=== PATIENT | female | born 1960 | race African-American/Black ===

== ENCOUNTER 2023-02-24 09:19 | Emergency (ER) | payer MEDICARE, MEDICAID ==
[~2023-02-24] VITALS: Ht 162.6 cm; Wt 63.0 kg
[2023-02-24 09:22] VITALS: O2SAT 99
[2023-02-24 10:54] LABS: BASOPHILS % 1.2 % (0.0-2.0); EOSINOPHILS % 14.9 % (0.0-5.0); HEMATOCRIT. 40.5 % (36.0-48.0); HEMOGLOBIN. 13.1 g/dL (12.0-16.0); LYMPHOCYTES % 16.6 % (20.0-50.0); MEAN CORPUSCULAR HEMOGLOBIN 27.4 pg (28.0-32.0); MEAN CORPUSCULAR VOLUME 84.6 fL (81.0-99.0); MEAN PLATELET VOLUME 9.1 fl (7.4-10.4); MONOCYTES % 4.3 % (2.0-8.0); PLATELET 246 x1000/uL (130-400); RED BLOOD CELL COUNT 4.79 mill/uL (4.2-5.4); RED CELL DISTRIBUTION WIDTH 14.7 % (11.6-14.6)
[2023-02-24 11:03] LABS: CHLORIDE 111 mEq/L (98-107)
[2023-02-24] MEDS ORDERED: ACETAMINOPHEN 325MG TABLET PO ONE (12:00)
[2023-02-24 12:27] VITALS: TEMP 98.7
[2023-02-24] MEDS ORDERED: LOSARTAN POTASSIUM 25 MG TABLET PO ONE (13:00)
[2023-02-24] MEDS ORDERED: AMLODIPINE 10MG TABLET PO ONE (13:00)
[2023-02-24] MEDS ORDERED: HYDRALAZINE HCL 50MG TABLET PO SCH ×2 (14:45→15:00)
[2023-02-24] MEDS ORDERED: HYDRALAZINE HCL 25MG TABLET PO SCH (15:00)
[2023-02-24 15:23] VITALS: BP 192/96; PULSE 83; RESP 17
== END 2023-02-24 15:25 | disposition home or self-care (01) ==
LOC: ER 09:55
DX: R07.89 Other chest pain (principal); I25.10 Atherosclerotic heart disease of native coronary artery without angina pectoris; E11.9 Type 2 diabetes mellitus without complications; I10 Essential (primary) hypertension; Z86.73 Personal history of transient ischemic attack (TIA), and cerebral infarction without residual deficits
CPT/HCPCS: 36415; 71045; 80053; 83880; 84484; 85025; 93005; 99285

== ENCOUNTER 2023-08-31 12:20 | Emergency (ER) | payer MEDICAID, MEDICARE ==
[~2023-08-31] VITALS: Ht 165.1 cm; Wt 55.0 kg
[~2023-08-31 12:20] MED LIST: ATOR40TA70 PO; METO25TA6 PO; SENN-257 PO
[2023-08-31] MEDS ORDERED: MORPHINE SULFATE 4 MG/ML CPJ (NOT FOR IM USE) IV STA (12:26)
[2023-08-31] MEDS ORDERED: ONDANSETRON HCL 4MG/2ML INJ IV STA (12:26)
[2023-08-31 12:28] VITALS: TEMP 98.5; O2SAT 100
[2023-08-31 12:52] LABS: HEMATOCRIT. 36.3 % (36.0-48.0); HEMOGLOBIN. 11.4 g/dL (12.0-16.0); MEAN CORPUSCULAR HEMOGLOBIN 27.1 pg (28.0-32.0); MEAN CORPUSCULAR HGB CONC 31.4 g/dL (31.0-37.0); MEAN CORPUSCULAR VOLUME 86.3 fL (81.0-99.0); MEAN PLATELET VOLUME 9.9 fl (7.4-10.4); PLATELET 191 x1000/uL (130-400); RED BLOOD CELL COUNT 4.21 mill/uL (4.2-5.4); RED CELL DISTRIBUTION WIDTH 14.1 % (11.6-14.6); WHITE BLOOD COUNT 5.6 x1000/uL (4.5-11.0)
[2023-08-31 12:56] LABS: DIFFERENTIAL COMMENT 1
[2023-08-31 13:03] LABS: PROTHROMBIN TIME 10.9 sec (9.6-11.0)
[2023-08-31 13:08] LABS: ALANINE AMINOTRANSFERASE 12 IU/L (10-49); ALBUMIN 4.2 g/dL (3.2-4.8); ASPARTATE AMINOTRANSFERASE 23 IU/L (<34); BILIRUBIN TOTAL 1.4 mg/dL (0.1-1.0); CALCIUM 9.3 mg/dL (8.7-10.4); CARBON DIOXIDE 28 mEq/L (21-32); CHLORIDE 108 mEq/L (98-107); GLUCOSE 82 mg/dL (70-105); POTASSIUM 3.9 mEq/L (3.5-5.1); PROTEIN TOTAL 6.5 g/dL (6.0-8.3); SODIUM 141 mEq/L (136-145); TROPONIN I HIGH SENSITIVITY 9 ng/L (3.0-34); UREA NITROGEN BLOOD 12 mg/dL (9-23)
[2023-08-31 14:05] LABS: PLATELET ESTIMATE NORMAL
[2023-08-31] MEDS ORDERED: ONDANSETRON HCL 4MG/2ML INJ IV NR (16:35)
[2023-08-31] MEDS: MORPHINE SULFATE 4 MG/ML CPJ (NOT FOR IM USE) IV NR ×2 (16:52→18:14)
[2023-08-31] MEDS ORDERED: ONDA4TAB11 PO (17:04)
[2023-08-31] MEDS ORDERED: HYDR-4001 MT (17:04)
[2023-08-31 18:14] VITALS: BP 201/119; PULSE 70; RESP 18
== END 2023-08-31 18:21 | disposition home or self-care (01) ==
LOC: ER 12:45 → CANBEDREQ 09-01 20:53
DX: R51.9 Headache, unspecified (principal); J45.909 Unspecified asthma, uncomplicated; I10 Essential (primary) hypertension; D57.1 Sickle-cell disease without crisis; Z86.73 Personal history of transient ischemic attack (TIA), and cerebral infarction without residual deficits; Z88.0 Allergy status to penicillin; Z88.8 Allergy status to other drugs, medicaments and biological substances
CPT/HCPCS: 99291; 96374; 70450; 96375; 80053; 83880; 85025; 85610; 84484; 36415; 71045; 93005; J2405; J2270

== ENCOUNTER 2025-02-15 19:09 | Emergency (ER) | payer OTHER, MEDICARE, MEDICAID ==
[~2025-02-15] VITALS: Ht 162.6 cm; Wt 67.0 kg
[~2025-02-15 19:09] MED LIST changes: +CLOP75TA33 PO; +DORZ10DR9; +ESCI5SOL2 MT; +GABA-1180 MT; +HYDR-4001 MT; +OMEP20CA14 PO; -SENN-257 PO; +SENN-362 PO
[2025-02-15 19:24] VITALS: TEMP 36.7; O2SAT 100
[2025-02-15 22:17] LABS: BASOPHILS % 0.6 % (0.0-2.0); EOSINOPHILS % 3.2 % (0.0-5.0); HEMATOCRIT. 41.8 % (36.0-48.0); HEMOGLOBIN. 13.4 g/dL (12.0-16.0); LYMPHOCYTES % 17.5 % (20.0-50.0); MEAN PLATELET VOLUME 9.5 fl (7.4-10.4); MONOCYTES % 5.4 % (2.0-8.0); NEUTROPHILS % 73.3 % (40.0-76.0); PLATELET 220 x1000/uL (130-400); RED BLOOD CELL COUNT 4.96 mill/uL (4.2-5.4); RED CELL DISTRIBUTION WIDTH 14.3 % (11.6-14.6)
[2025-02-15 22:29] LABS: INR 1.0
[2025-02-15 22:35] LABS: CREATININE 1.3 mg/dL (0.6-1.0); TROPONIN I HIGH SENSITIVITY 5 ng/L (3.0-34); UREA NITROGEN BLOOD 15 mg/dL (9-23)
[2025-02-15 22:37] LABS: ASPARTATE AMINOTRANSFERASE 33 IU/L (<34); BILIRUBIN DIRECT 0.4 mg/dL (<=3.0); BILIRUBIN TOTAL 1.4 mg/dL (0.1-1.0); PROTEIN TOTAL 7.1 g/dL (6.0-8.3)
[2025-02-15] MEDS: LIDOCAINE 5% PATCH TOP SCH (23:19)
[2025-02-15] MEDS: HYDROCODONE/ACETAMINOPHEN 5/325MG TABLET PO ONE (23:19)
[2025-02-16 00:55] LABS: CLARITY URINE CLEAR (CLEAR); COLOR URINE YELLOW (YELLOW); GLUCOSE URINE NEGATIVE (NEGATIVE); KETONES URINE NEGATIVE (NEGATIVE); LEUKOCYTE ESTERASE URINE 1+ (NEGATIVE); NITRITE URINE NEGATIVE (NEGATIVE); OCCULT BLOOD URINE NEGATIVE (NEGATIVE); PH URINE 6.5 (4.5-8.0); PROTEIN URINE NEGATIVE (NEGATIVE); SPECIFIC GRAVITY URINE 1.013 (1.005-1.030); UROBILINOGEN URINE 1.0 E.U./dL (0.2-1.0)
[2025-02-16] MEDS ORDERED: TRAM50TA3 MT (02:19)
[2025-02-16] MEDS ORDERED: LIDO700A30 TP (02:22)
[2025-02-16 02:31] VITALS: BP 160/82; PULSE 62; RESP 16; O2SAT 99
[2025-02-16 04:45] LABS: RBC URINE NONE SEEN /hpf (0-2); SQUAMOUS EPITHELIAL CELL URINE FEW /lpf (RARE/1+); WBC URINE 0-2 /hpf (0-2)
[2025-02-16 04:46] LABS: BACTERIA URINE TRACE
== END 2025-02-16 02:36 | disposition home or self-care (01) ==
LOC: ER 19:09
DX: S09.90XA Unspecified injury of head, initial encounter (principal); R51.9 Headache, unspecified; R07.2 Precordial pain; M54.2 Cervicalgia; M25.561 Pain in right knee; I10 Essential (primary) hypertension; J45.909 Unspecified asthma, uncomplicated; Z79.01 Long term (current) use of anticoagulants; Z79.899 Other long term (current) drug therapy; Z86.73 Personal history of transient ischemic attack (TIA), and cerebral infarction without residual deficits; Z88.6 Allergy status to analgesic agent; Z88.0 Allergy status to penicillin; V89.2XXA Person injured in unspecified motor-vehicle accident, traffic, initial encounter; Y93.89 Activity, other specified; Y92.89 Other specified places as the place of occurrence of the external cause; Y99.8 Other external cause status
CPT/HCPCS: 36415; 71045; 71120; 73560; 80048; 80076; 81003; 84484; 85025; 93005; 99285

== ENCOUNTER 2025-03-05 14:57 | Emergency (ER) | payer OTHER, MEDICAID ==
[~2025-03-05] VITALS: Ht 175.3 cm; Wt 70.0 kg
[~2025-03-05 14:57] MED LIST changes: +LIDO700A30 TP; +TRAM50TA3 MT
[2025-03-05 15:01] VITALS: O2SAT 99
[2025-03-05 15:50] LABS: BASOPHILS % 0.6 % (0.0-2.0); EOSINOPHILS % 2.6 % (0.0-5.0); HEMATOCRIT. 37.3 % (36.0-48.0); HEMOGLOBIN. 12.1 g/dL (12.0-16.0); LYMPHOCYTES % 17.5 % (20.0-50.0); MEAN PLATELET VOLUME 9.5 fl (7.4-10.4); MONOCYTES % 4.6 % (2.0-8.0); NEUTROPHILS % 74.7 % (40.0-76.0); PLATELET 189 x1000/uL (130-400); RED BLOOD CELL COUNT 4.43 mill/uL (4.2-5.4); RED CELL DISTRIBUTION WIDTH 13.8 % (11.6-14.6)
[2025-03-05 16:09] LABS: CREATININE 1.3 mg/dL (0.6-1.0); UREA NITROGEN BLOOD 13.0 mg/dL (9-23)
[2025-03-05 17:22] LABS: CLARITY URINE CLEAR (CLEAR); COLOR URINE YELLOW (YELLOW); GLUCOSE URINE NEGATIVE (NEGATIVE); KETONES URINE NEGATIVE (NEGATIVE); LEUKOCYTE ESTERASE URINE 1+ (NEGATIVE); NITRITE URINE NEGATIVE (NEGATIVE); OCCULT BLOOD URINE 2+ (NEGATIVE); PH URINE 6.5 (4.5-8.0); PROTEIN URINE NEGATIVE (NEGATIVE); SPECIFIC GRAVITY URINE 1.013 (1.005-1.030); UROBILINOGEN URINE 0.2 E.U./dL (0.2-1.0)
[2025-03-05 17:52] LABS: TROPONIN I HIGH SENSITIVITY 5 ng/L (3.0-34)
[2025-03-05 17:57] LABS: BACTERIA URINE TRACE; SQUAMOUS EPITHELIAL CELL URINE 1+ /lpf (RARE/1+)
[2025-03-05 20:16] VITALS: BP 114/63; PULSE 64; RESP 16; TEMP 37; O2SAT 100
== END 2025-03-05 18:34 | disposition home or self-care (01) ==
LOC: ER 14:57
DX: J45.901 Unspecified asthma with (acute) exacerbation (principal); I10 Essential (primary) hypertension; Z79.899 Other long term (current) drug therapy; Z86.73 Personal history of transient ischemic attack (TIA), and cerebral infarction without residual deficits; Z88.0 Allergy status to penicillin; Z88.6 Allergy status to analgesic agent
CPT/HCPCS: 36415; 71045; 80048; 81003; 84484; 85025; 93005; 99284